=== PATIENT | female | born 2005 | race Caucasian/White ===

== ENCOUNTER 2024-12-26 09:50 | Emergency (ER) | payer OTHER, SELFPAY ==
--- OUTSIDE RECORDS SUMMARY | 2024-12-06 15:50 | XMS_ITS | Encounter Summary ---
Author Organization [facility] Address [address] [address] Care Team Providers Care Medical Radiation Therapist Name Role Phone Clinician, Not Found MD Primary Care Provider Un available Reason for Visit * Reason Comments BP CHECK,NURSE Encounter Details Date Type Department Care Team (Late st Contact Info) Description 12/06/2024 3:50 PM CDT Nursing Visit [facility]LOCKSTITCH TUNNEL ELASTIC OPERATOR [id number] [place] [address], [facility] [address] [place] [address] Nurse, Amber Obg Blood pressure check (Primary Dx) Social History Tobacco Use Types Packs/Day Years Used Date Smoking Tobacco: Never Smokeless Tobacco: Never Alcohol Use Standard Drinks/Week Comments No 0 (1 standard drink = 0.6 oz pur e alcohol) PHQ-2 Answer Date Recorded PHQ-2 Score 2 07/20/2024 Comments No Sex and Gender Information Value Date Recorded Sex Assigned at Not on file Legal Sex Female 1:20 PM CDT Gender Identity Not on file Sexual Orientation Not on file documented as of this encounter Last Filed Vital Signs Vital Sign Reading Time Taken Comments Blood Pressure 107/63 12/06/2024 4:25 PM CDT Pulse 80 12/06/2024 4:25 PM CDT Temperature - - Respiratory Rate - - Oxygen Saturation - - Inhaled Oxygen Concentration - - Weight 82.1 kg (181 lb) 12/06/2024 4:25 PM CDT Height - - Body Mass Index 27.52 08/22/2024 9:28 AM TELERADIOLOGIST documented in this encounter Progress Notes * Cookie Hernández MA - 12/06/2024 3:50 PM CDT Patient presents for blood pressure check. BP 107/63, P 80. Patient has no concerns today. documented in this encounter Plan of Treatment Upcoming Encounters Date Type Department Care Team (Late st Contact Info) Description 01/13/2025 7:00 AM CDT Appointment Optometry at [address] [address] Adeola Burgos, OD [address] [facility] [address] [place] [address] Scheduled Procedures Name Priority Associated Diagnoses Date/Ti me INJECTION BOTOX SPHINCTER Anal fissure documented as of this encounter Visit Diagnoses Diagnosis Blood pressure check- Primary Screening for hypertension documented in this encounter Care Teams Medical Radiation Therapist Relationship Specialty Start Date End Date Clinician, Not Found, [place] [address] PCP - General 11/26/19 documented as of this encounter
--- OUTSIDE RECORDS SUMMARY | 2024-12-19 15:40 | XMS_ITS | Encounter Summary ---
Author Organization [facility] Address [address] [address] Care Team Providers Care Stationary Plant Operators Name Role Phone Clinician, Not Found MD Primary Care Provider Un available Reason for Referral * Procedure/Equipment (Routine) - Incomplete Specialty Diagnoses / Procedures Referred By Contac t Referred To Contact Diagnoses Anal fissure Procedures Case Request OR - General/Vascular Surg: anorectal examination under anesthesia with botox injection to internal anal sphincter Juliano Yates MD [address] [facility] [address] [place] [address] Phone: tel: fax: Referral ID Status Reason Start Date Expiration Date V isits Requested Visits Authorized [id number] Incomplete 12/19/2024 03/20/2026 1 1 Encounter Details Date Type Department Care Team (Late st Contact Info) Description 12/19/2024 3:40 PM CDT [facility] [address] Colorectal Surgery [address] [place] [address] [address] [place], [place] [address] Juliano Yates MD [facility] [address] [place], [place] [id number] Anal fissure (Primary Dx) Social History Tobacco Use Types [...] on file documented as of this encounter Progress Notes * Juliano Yates MD - 12/19/2024 3:40 PM CDT Images from the original note were not included. Colorectal Surgery Clinic Postop Visit Name: Karol Robles Date of Service: 12/19/2024 Having sharp pains with BM. +nifed/lido without much relief Plan for eua/botox to LIS pending insurance prior auth. Boost fiber intake now. Goal is formed but soft stools. Options include: Extra serving of fruit/vegetable at every meal 1-2 tablespoons of Citrucel daily Juliano Yates MD MS FACS [facility] Colorectal Surgery Clinic RN: [phone] Clinic Appointment Scheduling [phone] Surgery [phone] documented in this encounter Plan of Treatment Upcoming Encounters Date Type Department Care Team (Late st Contact Info) Description 01/13/2025 7:00 AM CDT Appointment Optometry at [place] [id number] [place] [address] Adeola Burgos, OD [address] [facility] [address] [place] [address] Scheduled Procedures Name Priority Associated Diagnoses Date/Ti me INJECTION BOTOX SPHINCTER Anal fissure documented as of this encounter Visit Diagnoses Diagnosis Anal fissure- Primary documented in this encounter Care Teams Stationary Plant Operators Relationship Specialty Start Date End Date Clinician, Not Found, [place] [address] PCP - General 11/26/19 documented as of this encounter
[2024-12-26 09:58] VITALS: BP 115/67; PULSE 87; RESP 18; TEMP 37; O2SAT 99; BMI 27.1
--- OUTSIDE RECORDS SUMMARY | 2024-12-26 10:51 | XMS_ITS | Encounter Summary ---
Author Organization [facility] Address [address] [place] [address] Care Team Providers Care Combination Operator Name Role Phone Laura Marks MD Primary Care Provider [phone] Laura Marks MD Unavailable [phone] Iglesia Juárez MD Unavailable [phone] Iglesia Juárez MD Primary Care Provider + Yosef Kaplan MD Unavailable [phone] No Ref-Primary, Physician Primary Care Provider Deyanira Ordoñez PA-C Unavailable [phone] Encounter Details Date Type Department Care Team (Late st Contact Info) Description 06/20/2023 [facility] [address] [place] [address] [facility] Social History Tobacco Use Types Packs/Day Years Used Date Smoking Tobacco: Former Cigarettes Smokeless Tobacco: Never Alcohol Use Standard Drinks/Week Comments Yes 0 (1 standard drink = 0.6 oz pur e alcohol) PHQ-2 Answer Date Recorded PHQ-2 Score 2 06/19/2023 Adolescent Education Answer Date Record ed Getting School Help Needed Not on file 05/14 Food Insecurity Answer Date Recorded Within the past 12 months, d id you worry that your food would run out before you got money to buy more? No 06/19/2023 Within the past 12 months, d id the food you bought just not last and you didn t have money to get more? No 06/19/2023 Housing Stability Answer Date Recorded Do you have housing? (Maliha carlton is defined as stable permanent housing and does not include staying outside in a car, in a tent, in an abandoned building, in an overnight senior living, or couch-surfing.) Yes 06/19/2023 Are you worried about losing your housing? No 06/19/2023 Financial Resource Strain Answer Date R ecorded Within the past 12 months, h ave you or your family members you live with been unable to get utilities (heat, electricity) when it was really needed? No 06/19/2023 Transportation Needs Answer Date Record ed Within the past 12 months, h as lack of transportation kept you from medical appointments, getting your medicines, non-medical meetings or appointments, work, or from getting things that you need? No 06/19/2023 Interpersonal Safety Answer Date Record ed Do you feel physically and e motionally safe where you currently live? Yes 06/19/2023 Within the past 12 months, h ave you been hit, slapped, kicked or otherwise physically hurt by someone? No 06/19/2023 Within the past 12 months, h ave you been humiliated or emotionally abused in other ways by your partner or ex-partner? No 06/19/2023 Comments No Sex and Gender Information Value Date Recorded Sex Assigned at Female 11/15/2023 1:58 PM CDT Legal Sex Female 4:37 AM OPTICAL MANUFACTURING TECHNICIAN Gender Identity Female 11/15/2023 1:58 PM CDT Sexual Orientation Straight 11/15/2023 1: 58 PM CDT documented as of this encounter Plan of Treatment Not on file documented as of this encounter Visit Diagnoses Not on filedocumented in this encounter Additional Health Concerns Assessment Noted Time PHQ-9 Depression Total Score: 10 023 1:11 PM OPTICAL MANUFACTURING TECHNICIAN documented as of this encounter Care Teams Combination Operator Relationship Specialty Start Date End Date Laura Marks MD [address] [place] [phone] PCP - General Pediatrics 05/05/21 11/27/23 Iglesia Juárez MD [address] [place] [address] PCP - General Psychiatry 11/28/23 11/28/23 No Ref-Primary, Physician PCP - General 11/29/23 Laura Marks MD [address] [phone] Assigned PCP 08/01/21 12/19/24 Iglesia Juárez MD [address] [place] [address] manager policy 11/17/23 11/28/23 Yosef Kaplan MD [address] [place] [address] Resident Psychiatry 11/29/23 Deyanira Ordoñez PA-C [address] [place] [phone] Assigned PCP 12/20/24 documented as of this encounter
--- OUTSIDE RECORDS SUMMARY | 2024-12-26 10:51 | XMS_ITS | Encounter Summary ---
Author Organization [facility] Address [facility] [place] [address] Care Team Providers Care Identification Printing Machine Setter Name Role Phone Laura Marks MD Unavailable [phone] Yosef Kaplan MD Unavailable [phone] No Ref-Primary, Physician Primary Care Provider Deyanira Ordoñez PA-C Unavailable [phone] Encounter Details Date Type Department Care Team (Late st Contact Info) Description 12/26/2023 [facility] [place] [id number] [place] [address] Santi Guy Social History Tobacco Use Types Packs/Day Years Used Date Smoking Tobacco: Former Cigarettes Smokeless Tobacco: Never Alcohol Use Standard Drinks/Week Comments Yes 0 (1 standard drink = 0.6 oz pur e alcohol) PHQ-2 Answer Date Recorded PHQ-2 Score 2 11/30/2023 Adolescent Education Answer Date Record ed Getting [...] Answer Date Recorded Do you have housing? (Housin g is defined as stable permanent housing and does not include staying outside in a car, in a tent, in an abandoned building, in an overnight intermediate, or couch-surfing.) Yes 06/19/2023 Are you worried [...] PM CDT Legal Sex Female 4:[address]GER FIRER Gender Identity Female 11/15/2023 1:58 PM CDT Sexual Orientation Straight 11/15/2023 1: 58 PM CDT documented as of this encounter Plan of Treatment Not on file documented as of this encounter Visit Diagnoses Not on filedocumented in this encounter Additional Health Concerns Assessment Noted Time PHQ-9 Depression Total Score: 8 11/30/19 9:51 AM CDT documented as of this encounter Care Teams Identification Printing Machine Setter Relationship Specialty Start Date End Date No Ref-Primary, Physician PCP - General 11/29/23 Laura Marks MD [address] [place] [phone] Assigned PCP 08/01/21 12/19/24 Yosef Kaplan MD [address] [place] [address] Resident Psychiatry 11/29/23 Deyanira Ordoñez PA-C [address] [place] [address] Assigned PCP 12/20/24 documented as of this encounter
--- OUTSIDE RECORDS SUMMARY | 2024-12-26 10:51 | XMS_ITS | Encounter Summary ---
Author Organization [facility] Address [address] [address] Care Team Providers Care Skeet Operator Name Role Phone Clinician, Not Found MD Primary Care Provider Un available Encounter Details Date Type Department Care Team (Late st Contact Info) Description 12/18/2024 [facility] [address] [place] [phone] Social History Tobacco Use Types Packs/Day Years [...] as of this encounter Progress Notes * FAMILY MEDICINENAVID PROVIDER - 12/18/2024 10:45 PM CDT [facility] Treatment Plan Diagnosis Yeast Infection Visit Date December 19, 2024 Karol Robles Date of : 04 Provider Helen Mccray, Nurse Practitioner Note From Provider Karol Land! Thanks for using [facility] today. Sorry to hear about your symptoms. I sent in an intravaginal prescription because there are two potentially severe interactions between the oral pill and medications you take. Please be sure to read through the treatment plan I've put together for you b elow, as this has additional information and instructions. Take good care! - Helen, RESIDENTIAL SALES Treatment Plan I sent a prescription for a topical antifungal medication to [facility]. Follow the instructions thatcome with your prescribed medication and note that this topical medication can weaken latex condoms anddiaphragms. If you use these forms of control, avoid having sex while using this medication and for 72hours (3 days) after completing this medication to reduce risk. Order(s) terconazole 0.8% cream Insert 5 gram into vagina once a day for 3 days Note: $patientNotes Refills: 1 Sent To: [facility] [id number] [place] [address] [place] [address] Treatment Plan Self Care Tip Topics Common Risk Factors for Yeast Infections What to Expect With the recommendations in this treatment plan, your symptoms should start to improve over the next 3days but may take up to a week to fully resolve. If your symptoms worsen or don?? improve in thistimeframe,I recommend you be seen in person so a clinician can consider testing and determine next steps. What to Watch Out For Visit a clinic or urgent care if you experience: ??? A fever higher than 103.0 F ??? Strong vaginal odor with discharge ??? Frequent, painful urination ??? Blood in urine ??? Severe back, abdominal or pelvic pain My Conditions, Orders, Allergies as of December 19, 2024 Standard condition list Asthma Current orders terconazole (terconazole) Lomaira (phentermine) topiramate (topiramate) Celexa (citalopram) hydroxyzine HCl (hydroxyzine HCl) Wellbutrin XL (bupropion HCl) Colace (docusate sodium) Allergies None [facility] We are an online clinic open 20/02. If you have any questions or comments about this visit, please call or email [email or web address] documented in this encounter Plan of Treatment Upcoming Encounters Date Type Department Care Team (Late st Contact Info) Description 01/13/2025 7:00 AM CDT Appointment Optometry at [address] [address] Adeola Burgos, OD [address] [facility] [address] [place] [address] Scheduled Procedures Name Priority Associated Diagnoses Date/Ti me INJECTION BOTOX SPHINCTER Anal fissure documented as of this encounter Visit Diagnoses Diagnosis Acute candidiasis of vulva and vagina documented in this encounter Care Teams Skeet Operator Relationship Specialty Start Date End Date Clinician, Not Found, [place] [address] PCP - General 11/26/19 documented as of this encounter
--- OUTSIDE RECORDS SUMMARY | 2024-12-26 10:51 | XMS_ITS | Encounter Summary ---
Author Organization [facility] Address [address], [place] [address] Care Team Providers Care Leather Fitter Name Role Phone Clinician, Not Found MD Primary Care Provider Un available Reason for Visit * Reason Comments Refill topiramate (TOPAMAX) 25 MG tablet [Pharmacy Med Name: Topiramate Oral Tablet 25 MG] Encounter Details Date Type Department Care Team (Late st Contact Info) Description 10/14/2024 Refill [facility] [address] [place], [place] [phone] Darling Godoy APRN, CRIB ATTENDANT [address] [place], [place] [phone] Refill (topiramate (TOPAMAX) 25 MG tablet [Pharmacy Med Name: Topiramate Oral Tablet 25 MG]) Social History Tobacco Use Types Packs/Day Years [...] on file documented as of this encounter Nursing Notes * Sally Jones - 10/14/2024 12:25 PM CDT Patient has appointment scheduled for later today. Future Appointments Provider Department Center 10/14/2024 5:00 PM Darling Godoy APRN, CNP [facility] Virtual Primary Care Virtual * Darling Godoy APRN, CNP - 10/14/2024 11:48 AM CDT Due for 3 month follow up. Thank you! * Milan Weller Xrwcomm - 10/14/2024 9:08 AM CDT topiramate (TOPAMAX) 25 MG tablet [Pharmacy Med Name: Topiramate Oral Tablet 25 MG] Medication started: 07/20/2024 Last ordered by DARLING GODOY: 08/16/2024 (59 days ago) QTY: 180, Refills: 0, Sig: take 1 tablet (25 mg) by mouth two times a day. (changed but equivalent) -> Medication cannot be delegated. Last qualifying visit: 07/20/2024 (with DARLING GODOY) Next scheduled visit: None [facility] Embedded Refills, Reference: [id number], 10/14/2024 9:08:02 AM CDT, Pool: LOBO Refill Centralized Services - Primary Care [[id number]] ([id number]) documented in this encounter Plan of Treatment Upcoming Encounters Date Type Department Care Team (Late st Contact Info) Description 01/13/2025 7:00 AM CDT Appointment Optometry at [address] [address] Adeola Burgos, OD [address] [facility] [address] [place], [place] [address] Scheduled Procedures Name Priority Associated Diagnoses Date/Ti me INJECTION BOTOX SPHINCTER Anal fissure documented as of this encounter Visit Diagnoses Not on filedocumented in this encounter Care Teams Leather Fitter Relationship Specialty Start Date End Date Clinician, Not Found, [place] [address] PCP - General 11/26/19 documented as of this encounter
--- OUTSIDE RECORDS SUMMARY | 2024-12-26 10:51 | XMS_ITS | Encounter Summary ---
Author Organization [facility] Address [address] [place] [address] Care Team Providers Care Cryogenic Transport Driver Name Role Phone Esha Sandoval MD Primary Care Provid er Gabbie De La O MD Unavailable Jose Kulkarni MD Primary Care Provider [phone] Laura Marks MD Unavailable [phone] Laura Marks MD Primary Care Provider [phone] Gabbie De La O MD Unavailable Laura Marks MD Unavailable [phone] Iglesia Juárez MD Unavailable [phone] Iglesia Juárez MD Primary Care Provider + Yosef Kaplan MD Unavailable [phone] No Ref-Primary, Physician Primary Care Provider Deyanira Ordoñez PA-C Unavailable [phone] Reason for Visit * Reason Comments Medication Refill celexa 20mg - due fo r appt Encounter Details Date Type Department Care Team (Late st Contact Info) Description 10/24/[address] [address] Gabbie De La O MD [address] [place] [address] Medication Refill (celexa 20mg - due for appt) Social History Tobacco Use Types Packs/Day Years Used Date Smoking Tobacco: Never PHQ-2 Answer Date Recorded PHQ-2 Score 4 08/31/2020 Comments No Sex and Gender Information Value Date Recorded Sex Assigned at Female 11/15/2023 1:58 PM CDT Legal Sex Female 4:37 AM OPTICAL WORKER Gender Identity Female 11/15/2023 1:58 PM CDT Sexual Orientation Straight 11/15/2023 1: 58 PM CDT documented as of this encounter Miscellaneous Notes * Telephone Encounter - Chhaya Ascencio RN - 10/30/2020 3:12 PM CDT Routing to [employer], to call pt & help schedule appt with Dr. De La O, for [facility]. * Telephone Encounter - Bárbara Stanford MD - 10/30/2020 11:49 AM CDT Rx refilled. Please make appointment with PCP in 3 months Bárbara Stanford MD on 10/30/2020 at 11:49 AM * Telephone Encounter - Felisha Soares RN - 10/30/2020 10:55 AM CDT Spoke to Mom, Patient out of town right now, 11/03/2020. So far patient is doing well. Sleeping well. Taking 20mg before bed. Personality has 'perked up'. Has not found a counselor yet d/t cost. Still at same school and speaking with school nurse, as needed. Overall feels like she is doing good. As she is journaling, reading, and breathing techniques. Has not decided on a new school yet. PCP please advise patient is out please advise if can send refill now. And update script to just 1 tablet. * Telephone Encounter - Felisha Soares RN - 10/30/2020 10:55 AM CDT Please repeat PHQ-9 and see how patient is doing on this medication? Has she found counseling through her new school? Does she need a counseling referral for the summer? Is the 20 mg helping enough? ?? Bárbara Stanford MD on 10/29/2020 at 11:26 AM ?? * Telephone Encounter - Marisela Cagle RN - 10/27/2020 1:01 PM CDT Images from the original note were not included. Routing refill request to provider for review/approval because: SSRIs Protocol [id number]/24/2020 04:12 PM PHQ-9 score less than 5 in past 6 months Protocol Details Patient is age 18 or older documented in this encounter Plan of Treatment Not on file documented as of this encounter Visit Diagnoses Diagnosis Current mild episode of major depressive disorder, unspecified whether recurrent documented in this encounter Additional Health Concerns Infection Onset Date Last Indicated Resolved Time Rule Out COVID-19 05/30/2022 05/30/2022 05/30/2022 10:19 PM CDT Influenza 05/30/2022 05/30/2022 06/06/2022 11:3 9 PM OPTICAL WORKER Assessment Noted Time PHQ-9 Depression Total Score: 12 021 10:25 AM OPTICAL WORKER documented as of this encounter Care Teams Cryogenic Transport Driver Relationship Specialty Start Date End Date Esha Sandoval MD PCP - General 01/24/05 10/29/20 Jose Kulkarni MD [address] [place] [address] [address] [place] [phone] PCP - General Family Practice 02/05/21 05/04/21 Laura Marks MD [address] [place] [phone] PCP - General Pediatrics 05/05/21 11/27/23 Iglesia Juárez MD [address] [place] [id number] PCP - General Psychiatry 11/28/23 11/28/23 No Ref-Primary, Physician PCP - General 11/29/23 Gabbie De La O MD [address] [place] [address] Assigned PCP 09/06/20 03/06/21 Laura Marsk MD [address] [place] [phone] Assigned PCP 03/07/21 05/08/21 Gabbie De La O MD [address] [place] [address] Assigned PCP 05/09/21 07/31/21 Laura Marks MD [address] [place] [phone] Assigned PCP 08/01/21 12/19/24 Iglesia Juárez MD [address] [place] [address] milking machine technician 11/17/23 11/28/23 Yosef Kaplan MD [address] [place] [address] Resident Psychiatry 11/29/23 Deyanira Ordoñez PA-C [address] [place] [address] Assigned PCP 12/20/24 documented as of this encounter
--- OUTSIDE RECORDS SUMMARY | 2024-12-26 10:51 | XMS_ITS | Encounter Summary ---
Author Organization [facility] Address [address] [address] Care Team Providers Care Rn Travel Name Role Phone Clinician, Not Found MD Primary Care Provider Un available Reason for Visit * Reason Comments Refill LOMAIRA 8 MG [Pharma cy Med Name: Lomaira Oral Tablet 8 MG] Encounter Details Date Type Department Care Team (Late st Contact Info) Description 10/14/2024 Refill [facility] [address] [place], [place] [id number] Darling Godoy APRN, CNP [address] [place], [place] [phone] Refill (LOMAIRA 8 MG [Pharmacy Med Name: Lomaira Oral Tablet 8 MG]) Social History Tobacco Use Types Packs/Day [...] as of this encounter Nursing Notes * Darling Godoy APRN, CNP - 10/14/2024 11:47 AM CDT Due for three month follow up. Thank you! * Milan Weller - 10/14/2024 9:08 AM CDT LOMAIRA 8 MG [Pharmacy Med Name: Lomaira Oral Tablet 8 MG] Medication started: 07/20/2024 Last ordered by DARLING GODOY E: 08/06/2024 (69 days ago) QTY: 70, Refills: 0, Sig: take 0.5 tablets (4 mg) by mouth two times a day with meals for 14 days, then 1 tablet (8 mg) two times a day with meals for 28 days. (changed) -> The most recent order on 09/17/2024. -> Unable to determine if sig has changed, review required. -> Medication cannot be delegated. Last qualifying visit: 07/20/2024 (with DARLING GODOY) Next scheduled visit: [facility] Embedded Refills, Reference: [id number], 10/14/2024 9:08:02 AM Jacinta BHARDWAJill Centralized Services - Primary Care [[id number]] ([id number]) * Milan Wellercomm - 10/14/2024 9:08 AM CDT No Careplan note found by [employer]. documented in this encounter Plan of Treatment Upcoming Encounters Date Type Department Care Team (Late st Contact Info) Description 01/13/2025 7:00 AM CDT Appointment Optometry at [address] [phone] Adeola Burgos, OD 16[address] [facility] 100 [place], [place] [address] Scheduled Procedures Name Priority Associated Diagnoses Date/Ti me INJECTION BOTOX SPHINCTER Anal fissure documented as of this encounter Visit Diagnoses Diagnosis Obesity, Class I, BMI 30-34.9 Obesity, unspecified documented in this encounter Care Teams Rn Travel Relationship Specialty Start Date End Date Clinician, Not Found, [place] [address] PCP - General 11/26/19 documented as of this encounter
--- OUTSIDE RECORDS SUMMARY | 2024-12-26 10:51 | XMS_ITS | Encounter Summary ---
Author Organization [place] Address [facility] [place] [address] Care Team Providers Care Wet Cotton Feeder Name Role Phone Laura Marks MD Unavailable [phone] Yosef Kaplan MD Unavailable [phone] Ref-Primary, Physician Primary Care Provider Deyanira Ordoñez PA-C Unavailable [phone] Encounter Details Date Type Department Care Team (Late st Contact Info) Description 05/15/2024 [facility] Mental Health & Addiction [place] [phone] [address] [place] [address] Santi Guy Social History Tobacco Use Types Packs/Day Years Used Date Smoking Tobacco: Former Cigarettes Smokeless Tobacco: Never Alcohol Use Standard Drinks/Week Comments Yes 0 (1 standard drink = 0.6 oz pur e alcohol) PHQ-2 Answer Date Recorded PHQ-2 Score 2 05/09/2024 Adolescent Education Answer Date Record ed Getting [...] in an abandoned building, in an overnight alf, or couch-surfing.) Yes 06/19/2023 Are you worried [...] PM CDT Legal Sex Female 4:37 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 Gender Identity Female 11/15/2023 1:58 PM CDT Sexual Orientation Straight 11/15/2023 1: 58 PM CDT documented as of this encounter Plan of Treatment Not on file documented as of this encounter Visit Diagnoses Not on filedocumented in this encounter Additional Health Concerns Assessment Noted Time PHQ-9 Depression Total Score: 7 05/08/20 24 11:05 AM CDT documented as of this encounter Care Teams Wet Cotton Feeder Relationship Specialty Start Date End Date No Ref-Primary, Physician PCP - General 11/29/23 Laura Marks MD [address] [place] [phone] Assigned PCP 08/01/21 12/19/24 Yosef Kaplan MD [address] [place] [address] Resident Psychiatry 11/29/23 Deyanira Ordoñez PA-C [address] [place] [address] Assigned PCP 12/20/24 documented as of this encounter
--- OUTSIDE RECORDS SUMMARY | 2024-12-26 10:51 | XMS_ITS | Encounter Summary ---
Author Organization [place] Address [facility] [place] [address] Care Team Providers Care Aoc Operations Intelligence Officer Name Role Phone Laura Marks MD Primary Care Provider [phone] Laura Marks MD Unavailable [phone] Iglesia Juárez MD Unavailable [phone] Iglesia Juárez MD Primary Care Provider + Yosef Kaplan MD Unavailable [phone] No Ref-Primary, Physician Primary Care Provider Deyanira Ordoñez PA-C Unavailable [phone] Encounter Details Date Type Department Care Team (Late st Contact Info) Description 11/17/2023 [facility] Mental Health & Addiction [place] [phone] [address] Santi Guy Social History Tobacco Use Types Packs/Day Years Used Date Smoking Tobacco: Former Cigarettes Smokeless Tobacco: Never Alcohol Use Standard Drinks/Week Comments Yes 0 (1 standard drink = 0.6 oz pur e alcohol) PHQ-2 Answer Date Recorded PHQ-2 Score 2 11/15/2023 Adolescent Education Answer Date Record ed Getting [...] in an abandoned building, in an overnight nursing home, or couch-surfing.) Yes 06/19/2023 Are you worried [...] PM CDT Legal Sex Female 4:37 AM BASIN 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 Gender Identity Female 11/15/2023 1:58 PM CDT Sexual Orientation Straight 11/15/2023 1: 58 PM CDT documented as of this encounter Plan of Treatment Not on file documented as of this encounter Visit Diagnoses Not on filedocumented in this encounter Additional Health Concerns Assessment Noted Time PHQ-9 Depression Total Score: 9 09/27/19 8:46 AM BASIN TENDER documented as of this encounter Care Teams Aoc Operations Intelligence Officer Relationship Specialty Start Date End Date Laura Marks MD [address] [place] [phone] PCP - General Pediatrics 05/05/21 11/27/23 Iglesia Juárez MD [address] [place] [address] [phone] PCP - General Psychiatry 11/28/23 11/28/23 No Ref-Primary, Physician PCP - General 11/29/23 Laura Marks MD [address] [phone] Assigned PCP 08/01/21 12/19/24 Iglesia Juárez MD [address] [place] [address] school traffic guard 11/17/23 11/28/23 Yosef Kaplan MD [address] [place] [address] Resident Psychiatry 11/29/23 Deyanira Ordoñez PA-C [address] [place] [address] Assigned PCP 12/20/24 documented as of this encounter
--- OUTSIDE RECORDS SUMMARY | 2024-12-26 10:51 | XMS_ITS | Clinical Summary ---
Author Organization [place] Address [address] [place] [address] Care Team Providers Care Archery Instructor Name Role Phone Yosef Kaplan MD Unavailable [phone] No Ref-Primary, Physician Primary Care Provider Deyanira Ordoñez PA-C Unavailable [phone] Allergies Active Allergy Reactions Criticality Noted Date Comments Seasonal Allergies Low 12/05/2016 Medications fluticasone (FLOVENT HFA) 110 MCG/ACT inhalerIndication s:Exercise-induce d asthma Inhale 2 puffs into the lungs 2 times daily for 14 days 24 g 1 1 Active albuterol (PROAIR HFA) 108 (90 Base) MCG/ACT inhalerIndication s:Acute bronchospasm INHALE TWO PUFFS BY MOUTH EVERY 4 HOURS NEEDED SHORTNESS OF BREATH/DYSPNEA 18 g 3 1 Active hydrOXYzine HCl (ATARAX) 10 MG tabletIndications :LUC (generalized anxiety disorder) Take 1 tablet (10 mg) by mouth 2 times daily as needed for anxiety. 30 tablet 1 4 Active buPROPion (WELLBUTRIN XL) 150 MG 24 hr tabletIndications :Major depressive disorder, recurrent episode, moderate (H),LUC (generalized anxiety disorder) Take 1 tablet (150 mg) by mouth every morning. 30 tablet 2 4 Active citalopram (CELEXA) 40 MG tabletIndications :Major depressive disorder, recurrent episode, moderate (H),LUC (generalized anxiety disorder) Take 1 tablet (40 mg) by mouth daily. 30 tablet 2 4 Active lidocaine (LMX4) 4 % external cream Apply topically once as needed for mild pain. 30 g 5 Active Active Problems Problem Noted Date Diagnosed Date Passive suicidal ideations 07/16/2023 Major depression, recurrent 07/16/2023 Mild intermittent asthma, uncomplicated 02/26/20 21 Exercise-induced asthma 02/25/2021 Loss of weight 12/20/2016 Generalized anxiety disorder 12/20/2016 Resolved Problems Problem Noted Date Diagnosed Date Resolved Date Adjustment disorder with anxious mood 03/18/2016 12/31/2023 Hemangioma of skin and subcutaneous tissue 05/18/2005 10/28/2009 Umbilical hernia 2004 10/28/2009 Overview (04/30/2015): Problem list name updated by automated process. Provider to review Immunizations Immunization Administration Dates Next Due DTAP-IPV, <7Y (QUADRACEL/KINRIX) 03/02/2010 DTaP/HepB/IPV 05/18/2005,02/15/2005,2004 HIB (PRP-T) 2004 HIB(PRP-OMP)(PedvaxHIB) 02/15/2005 Hepatitis A (Vaqta/Havrix)(P eds 12m-18y) 02/25/2021 Influenza (IIV3) PF 06/17/2010, 8,07/27/2006,06/17,05/18/2005 Influenza Vaccine >6 months,quad, PF 08/02/2023 MMR (MMRII) 03/02/2010,10/26/2005 Meningococcal ACWY (Menactra ) 02/25/2021,04/25/2017 Pneumococcal (PCV 7) 02/08/2006,05/18/20 05,02/15/2005,12/13 TDAP Vaccine (Adacel) 04/25/2017 TRIHIBIT (DTAP/HIB, <7y) 02/08/2006 Varicella (Varivax) 03/02/2010,10/26/2005 Family History Medical History Relation Comments Diabetes Brother Type 1 Connective Tissue Disorder Maternal Grandfather sjogrens syndrome Connective Tissue Disorder Mother vitil igo, Thyroid Disease Mother hypothyroid Arthritis Other MOm and dad also with auto-immune disorders Diabetes Sister Type 1 Relation Status Comments Brother Maternal Grandfather Mother Other Sister Social History Tobacco Use Types Packs/Day Years Used Date Smoking Tobacco: Former Cigarettes Smokeless Tobacco: Never Tobacco Cessation:Counseling Given: Not Answered Alcohol Use Standard Drinks/Week Comments Yes 0 [...] in an abandoned building, in an overnight longterm, or couch-surfing.) Yes 06/19/2023 Are you worried [...] PM CDT Legal Sex Female 4:37 AM PIPE SMOKING MACHINE OPERATOR Gender Identity Female 11/15/2023 1:58 PM CDT Sexual Orientation Straight 11/15/2023 1: 58 PM CDT Last Filed Vital Signs Vital Sign Reading Time Taken Comments Blood Pressure 123/78 08/15/2024 6:20 PM PIPE SMOKING MACHINE OPERATOR Pulse 89 08/15/2024 6:00 PM PIPE SMOKING MACHINE OPERATOR Temperature 37.1 C (98.8 F) 08/15/2024 6:24 PM PIPE SMOKING MACHINE OPERATOR Respiratory Rate 18 08/15/2024 4:15 PM PIPE SMOKING MACHINE OPERATOR Oxygen Saturation 98% 08/15/2024 6:20 PM PIPE SMOKING MACHINE OPERATOR Inhaled Oxygen Concentration - - Weight 91.9 kg (202 lb 9.6 oz) 08/15/2024 4:15 P M PIPE SMOKING MACHINE OPERATOR Height 171.5 cm (5' 7.5) 08/15/2024 4:15 PM PIPE SMOKING MACHINE OPERATOR Body Mass Index 31.26 08/15/2024 4:15 PM PIPE SMOKING MACHINE OPERATOR Plan of Treatment Health Maintenance Due Date Last Done Comments ASTHMA ACTION PLAN 2004 DEPRESSION ACTION PLAN 2004 HIV SCREENING 10/17/2019 HPV VACCINE (1 - 3-dose series) 10/17/2019 MENINGITIS B VACCINE (1 of 2 - Standard) 2020 HEPATITIS C SCREENING 2022 PNEUMOCOCCAL VACCINE: PEDIAT RICS (0 to 5 YEARS) AND AT-RISK PATIENTS (6 to 49 YEARS) (1 of 2 - PCV) 10/17/2023 02/08/2006, 05/18/2005, 02/15/2005, Additional history exists COVID-19 VACCINE (2 - Novava x series) 03/31/2024 08/05/2023 YEARLY PREVENTIVE VISIT 06/19/2024 06/19/20, 02/25/2021, 03/14/2018, Additional history exists ASTHMA CONTROL TEST 07/20/2024 01/19/2024, 06/19/2023, 01/17/2022, Additional history exists PHQ-9 11/07/2024 05/09/2024, 0607/2023, 11/30/2023, Additional history exists ANNUAL REVIEW OF HM ORDERS 11/29/2024 11/30/2023, INFLUENZA VACCINE (Season Ended) 2025 08/02/2023, 06/17/2010, 06/18/2008, Additional history exists CHLAMYDIA SCREENING 05/20/2025 05/20/2024, 05/20/2024, 03/08/2023, Additional history exists DTAP/TDAP/TD VACCINE (7 - Td or Tdap) 04/25/2027 04/25/2017, 03/02/2010, 02/08/2006, Additional history exists ADVANCE CARE PLANNING 08/17/2028 08/17/2023 ZOSTER VACCINE (1 of 2) 2054 MENINGITIS VACCINE Completed 02/25/2021, 04/25/2017 HEPATITIS B VACCINE Completed 06/14/2024, 06/14/2024, 05/18/2005, Additional history exists Procedures Procedure Name Priority Date/Time Associated Diagnosis Comments CHLAMYDIA TRACHOMATIS PCR Routine 05/20/2024 5:25 PM CDT Vaginal discharge from Last 3 Months or Most Recently Relevant to Health Maintenance Results * Chlamydia trachomatis PCR (05/20/2024 5:25 PM CDT) Chlamydia trachomatis Negative Negative 05/22/2024 1:12 PM CDT [facility] Comment:A negative result by photographic aide mediated amplification does not preclude the presence of C. trachomatis infection because results are dependent on proper and adequate collection, absence of inhibitors and sufficient rRNA to be detected. Swab VAGINAL STRUCTURE / Unknown Non-blood Collection / Unknown 05/20/2024 5:25 PM CDT 05/20/2024 5:25 PM CDT us Gabbie De La O MD LAB - MICRO GENERAL ORDERABLES F inal Result [facility] Inf. Diseases Diag. Lab [address] [facility], [address] [place] [address], [facility] from Last 3 Months or Most Recently Relevant to Health Maintenance Insurance [facility] [employer] Care Teams Archery Instructor Relationship Specialty Start Date End Date No Ref-Primary, Physician PCP - General 11/29/23 Yosef Kaplan MD [address] [place] [address] Resident Psychiatry 11/29/23 Deyanira Ordoñez PA-C [address] [place] [address] [phone] Assigned PCP 12/20/24
--- OUTSIDE RECORDS SUMMARY | 2024-12-26 10:51 | XMS_ITS | Encounter Summary ---
Author Organization [place] Address [facility] [place] [address] Care Team Providers Care Blue Print Control Clerk Name Role Phone Laura Marks MD Primary Care Provider [phone] Laura Marks MD Unavailable [phone] Iglesia Juárez MD Unavailable [phone] Iglesia Juárez MD Primary Care Provider + Yosef Kaplan MD Unavailable [phone] No Ref-Primary, Physician Primary Care Provider Deyanira Ordoñez PA-C Unavailable [phone] Encounter Details Date Type Department Care Team (Late st Contact Info) Description 11/15/2023 [facility] Mental Health & Addiction [place] [phone] [address] Santi Guy Social History Tobacco [...] in an abandoned building, in an overnight care home, or couch-surfing.) Yes 06/19/2023 Are you [...] PM CDT Legal Sex Female 4:37 AM 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 Gender Identity Female 11/15/2023 1:58 PM CDT Sexual Orientation Straight 11/15/2023 1: 58 PM CDT documented as of this encounter Plan of Treatment Not on file documented as of this encounter Visit Diagnoses Not on filedocumented in this encounter Additional Health Concerns Assessment Noted Time PHQ-9 Depression Total Score: 9 09/27/19 8:46 AM 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 documented as of this encounter Care Teams Blue Print Control Clerk Relationship Specialty Start Date End Date Laura Marks MD [address] [place] [phone] PCP - General Pediatrics 05/05/21 11/27/23 Iglesia Juárez MD [address] [place] [address] [phone] PCP - General Psychiatry 11/28/23 11/28/23 No Ref-Primary, Physician PCP - General 11/29/23 Laura Marks MD [address] [phone] Assigned PCP 08/01/21 12/19/24 Iglesia Juárez MD [address] [place] [address] humidifier maintenance worker 11/17/23 11/28/23 Yosef Kaplan MD [address] [place] [address] Resident Psychiatry 11/29/23 Deyanira Ordoñez PA-C [address] [place] [address] Assigned PCP 12/20/24 documented as of this encounter
--- OUTSIDE RECORDS SUMMARY | 2024-12-26 10:51 | XMS_ITS | Encounter Summary ---
Author Organization [place] Address [address] [place] [address] Care Team Providers Care Clerical Investigator Name Role Phone Laura Marks MD Primary Care Provider [phone] Laura Marks MD Unavailable [phone] Iglesia Juárez MD Unavailable [phone] Iglesia Juárez MD Primary Care Provider + Yosef Kaplan MD Unavailable [phone] No Ref-Primary, Physician Primary Care Provider Reason for Visit * Reason Onset Date Comments Orders 08/14/2023 Encounter Details Date Type Department Care Team (Late st Contact Info) Description 08/14/[address] [address] Laura Marks MD [address] [place] [phone] Orders Social History Tobacco Use Types Packs/Day Years [...] in an abandoned building, in an overnight mcc, or couch-surfing.) Yes 06/19/2023 Are you worried [...] PM CDT Legal Sex Female 4:37 AM VP [employer] Gender Identity Female 11/15/2023 1:58 PM CDT Sexual Orientation Straight 11/15/2023 1: 58 PM CDT documented as of this encounter Miscellaneous Notes * Telephone Encounter - Myra Zendejas RN - 08/15/2023 8:45 AM CST Please see pending lab order and sign if approved. 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 [facility] Does patient have an appointment scheduled?: No Where to send orders: Place orders within [facility] Could we send this information to you in [facility] or would you prefer to receive a phone call?: Patient would prefer a phone call Okay to leave a detailed message?: Yes at Cell number on file: Telephone Information: [employer] documented in this encounter Plan of Treatment Not on file documented as of this encounter Visit Diagnoses Diagnosis Screening examination for pulmonary tuberculosis- Primary documented in this encounter Additional Health Concerns Assessment Noted Time PHQ-9 Depression Total Score: 10 023 1:11 PM VP [employer] documented as of this encounter Care Teams Clerical Investigator Relationship Specialty Start Date End Date Laura Marks MD [address] [place] [phone] PCP - General Pediatrics 05/05/21 11/27/23 Iglesia Juárez MD [address] [place] [address] [phone] PCP - General Psychiatry 11/28/23 11/28/23 No Ref-Primary, Physician PCP - General 11/29/23 Laura Marks MD [address] [place] [phone] Assigned PCP 08/01/21 12/19/24 Iglesia Juárez MD [address] [place] [address] admitting supervisor 11/17/23 11/28/23 Yosef Kaplan MD [address] [place] [address] Resident Psychiatry 11/29/23 documented as of this encounter
--- OUTSIDE RECORDS SUMMARY | 2024-12-26 10:51 | XMS_ITS | Encounter Summary ---
Author Organization [place] Address [facility] [place] [address] Care Team Providers Care Fuel Truck Driver Name Role Phone Laura Marks MD Primary Care Provider [phone] Laura Marks MD Unavailable [phone] Iglesia Juárez MD Unavailable [phone] Iglesia Juárez MD Primary Care Provider + Yosef Kaplan MD Unavailable [phone] No Ref-Primary, Physician Primary Care Provider Deyanira Ordoñez PA-C Unavailable [phone] Encounter Details Date Type Department Care Team (Late st Contact Info) Description 09/07/2023 [facility] Advice [place] [facility] Mental Health & Addiction [place] [phone] [address] Jesi Morrow, RN Social History Tobacco Use Types Packs/Day Years Used Date Smoking Tobacco: Former Cigarettes Smokeless Tobacco: Never Alcohol Use Standard Drinks/Week Comments Yes 0 (1 standard drink = 0.6 oz pur e alcohol) PHQ-2 Answer Date Recorded PHQ-2 Score 2 08/23/2023 Adolescent Education Answer Date Record ed Getting [...] PM CDT Legal Sex Female 4:37 AM PIN TICKET MACHINE OPERATOR Gender Identity Female 11/15/2023 1:58 PM CDT Sexual Orientation Straight 11/15/2023 1: 58 PM CDT documented as of this encounter Plan of Treatment Not on file documented as of this encounter Visit Diagnoses Not on filedocumented in this encounter Additional Health Concerns Assessment Noted Time PHQ-9 Depression Total Score: 9 08/23/19 24 8:49 AM PIN TICKET MACHINE OPERATOR documented as of this encounter Care Teams Fuel Truck Driver Relationship Specialty Start Date End Date Laura Marks MD [address] [place] [phone] PCP - General Pediatrics 05/05/21 11/27/23 Iglesia Juárez MD [address] [place] [address] PCP - General Psychiatry 11/28/23 11/28/23 No Ref-Primary, Physician PCP - General 11/29/23 Laura Marks MD [address] [phone] Assigned PCP 08/01/21 12/19/24 Iglesia Juárez MD [address] [place] [address] hydrotherapist 11/17/23 11/28/23 Yosef Kaplan MD [address] [place] [address] Resident Psychiatry 11/29/23 Deyanira Ordoñez PA-C [address] [place] [address] Assigned PCP 12/20/24 documented as of this encounter
--- OUTSIDE RECORDS SUMMARY | 2024-12-26 10:51 | XMS_ITS | Encounter Summary ---
Author Organization [facility] Address [address] [place] [address] Care Team Providers Care Senior Linux Unix Engineer Name Role Phone Clinician, Not Found MD Primary Care Provider Un available Reason for Visit * Reason Comments Refill LOMAIRA 8 MG [Pharma cy Med Name: Lomaira Oral Tablet 8 MG] Encounter Details Date Type Department Care Team (Late st Contact Info) Description [facility]/17[facility]20[facility] [address] [place], [place] [phone] Darling Godoy APRN, PICK UP DRIVER [address] [place], [place] [address] Refill (LOMAIRA 8 MG [Pharmacy Med Name: [...] Notes * Darling Godoy APRN, CNP - 12/17/2024 1:05 PM CDT PDMP reviewed. * Miguelito Torres - 12/17/2024 1:01 PM CDT Pt calling back, says refills where discussed during her visit in september. Please add those additional refills * Milan Weller Xrwcomm - 12/17/2024 12:56 PM CDT LOMAIRA 8 MG [Pharmacy Med Name: Lomaira Oral Tablet 8 MG] Medication started: 07/20/2024 Last ordered by DARLING GODOY E: 10/14/2024 (64 days ago) QTY: 45, Refills: 1, Sig: take 1 tablet (8 mg) by mouth every morning and 0.5 tablets (4 mg) every evening. (changed but equivalent) -> Medication cannot be delegated. Last qualifying visit: 10/14/2024 (with DARLING GODOY) Next scheduled visit: [facility] Embedded Refills, Reference: [id number], 12/17/2024 12:56:38 PM CDT, Pool: LOBO Refill Centralized Services - Primary Care [[id number]] ([id number]) * Milan Weller Xrwcomm - 12/17/2024 12:56 PM CDT No Careplan note found by [employer]. documented in this encounter Plan of Treatment Upcoming Encounters Date Type Department Care Team (Late st Contact Info) Description 01/13/2025 7:00 AM CDT Appointment Optometry at [address] [address] Adeola Burgos, OD [address] [facility] 100 [place] [address] Scheduled Procedures Name Priority Associated Diagnoses Date/Ti me INJECTION BOTOX SPHINCTER Anal fissure documented as of this encounter Visit Diagnoses Diagnosis Obesity, Class I, BMI 30-34.9 Obesity, unspecified documented in this encounter Care Teams Senior Linux Unix Engineer Relationship Specialty Start Date End Date Clinician, Not Found, [place] [address] PCP - General 11/26/19 documented as of this encounter
--- OUTSIDE RECORDS SUMMARY | 2024-12-26 10:51 | XMS_ITS | Encounter Summary ---
Author Organization [facility] Address [address] [place] [address] Care Team Providers Care Mission Support Specialist Name Role Phone Laura Marks MD Primary Care Provider [phone] Laura Marks MD Unavailable [phone] Iglesia Juárez MD Unavailable [phone] Iglesia Juárez MD Primary Care Provider + Yosef Kaplan MD Unavailable [phone] No Ref-Primary, Physician Primary Care Provider Deyanira Ordoñez PA-C Unavailable [phone] Reason for Visit * Reason Comments Medication Refill Encounter Details Date Type Department Care Team (Late st Contact Info) Description 01/05/[address] [address] Laura Marks MD [address] [place] [address] Medication Refill Social History Tobacco Use Types Packs/Day Years Used Date Smoking Tobacco: Never Smokeless Tobacco: Never PHQ-2 Answer Date Recorded PHQ-2 Score 2 02/25/2021 Comments No Sex and Gender Information Value Date Recorded Sex Assigned at Female 11/15/2023 1:58 PM CDT Legal Sex Female 4:37 AM FIRE CAPTAIN MARINE Gender Identity Female 11/15/2023 1:58 PM CDT Sexual Orientation Straight 11/15/2023 1: 58 PM CDT documented as of this encounter Miscellaneous Notes * Telephone Encounter - Meenu Godinez - 01/07/2022 3:14 PM CDT Left voicemail to call back and get scheduled * Telephone Encounter - Laura Marks MD - 01/06/2022 5:20 PM CDT 1 refill previously done. Past due for appointment .PLEASE SET UP VIRTUAL VISIT(PREFERRED VIDEO) * Telephone Encounter - Lucia Valadez RN - 01/06/2022 2:48 PM CDT Images from the original note were not included. Routing refill request to provider for review/approval because: PHQ9 score of 6 on 07/29/2021 Patient is age 18 or older Lucia Valadez RN documented in this encounter Plan of Treatment Not on file documented as of this encounter Visit Diagnoses Diagnosis Anxiety Anxiety state, unspecified Current moderate episode of major depressive disorder without prior episode (H) documented in this encounter Additional Health Concerns Infection Onset Date Last Indicated Resolved Time Rule Out COVID-19 05/30/2022 05/30/2022 05/30/2022 10:19 PM CDT Influenza 05/30/2022 05/30/2022 06/06/2022 11:3 9 PM FIRE CAPTAIN MARINE Assessment Noted Time PHQ-9 Depression Total Score: 6 07/29/20 21 11:35 AM FIRE CAPTAIN MARINE documented as of this encounter Care Teams Mission Support Specialist Relationship Specialty Start Date End Date Laura Marks MD [address] [place] [phone] PCP - General Pediatrics 05/05/21 11/27/23 Iglesia Juárez MD [address] [place] [address] PCP - General Psychiatry 11/28/23 11/28/23 No Ref-Primary, Physician PCP - General 11/29/23 Laura Marks MD [address] [phone] Assigned PCP 08/01/21 12/19/24 Iglesia Juárez MD [address] [place] [address] department store general manager 11/17/23 11/28/23 Yosef Kaplan MD [address] [place] [address] Resident Psychiatry 11/29/23 Deyanira Ordoñez PA-C [address] [place] [address] Assigned PCP 12/20/24 documented as of this encounter
--- OUTSIDE RECORDS SUMMARY | 2024-12-26 10:51 | XMS_ITS | Clinical Summary ---
Author Organization [facility] Address [address] [place] [address] Care Team Providers Care Metal Template Maker Name Role Phone Clinician, Not Found MD Primary Care Provider Un available Source Comments You are receiving this document as you are listed as the primary care provider,follow-up provider, or the patient has been referred to you for consultation.This is in compliance with the Medicare and[facility] Hospital[facility] EHR Incentive Program,which states Providers who transition their patient to another setting of careor provider of care or refers their patient to another provider of care shouldprovide summary care record for each transition of care or referral. [facility] Allergies Active Allergy Reactions Criticality Noted Date Comments Pollen Extract Unknown Low 12/05/2016 Medications VENTOLIN HFA 108 (90 Base) MCG/ACT inhalerIndicatio ns:Asthma, exercise induced (HRC) INHALE 2 PUFFS EVERY 4 HOURS NEEDED FOR WHEEZING. 3 Inhaler 11/25/19 20 Active FLOVENT HFA 110 MCG/ACT inhaler 02/26/20 21 Active hydrOXYzine HCl (ATARAX) 10 MG tablet Take 1 Tablet (10 mg) by mouth. 05/09/20 24 Active citalopram (CELEXA) 40 MG tabletIndication s:Anxiety (HRC) Take 1 Tablet (40 mg) by mouth daily. 90 Tablet 3 07/20/20 24 Active buPROPion (WELLBUTRIN XL) 150 MG 24 hour release tabletIndication s:Anxiety (HRC) Take 1 Tablet (150 mg) by mouth daily. 90 Tablet 3 07/20/20 24 Active lidocaine 3% nifedipine 0.5% occluvanIndicati ons:Anal pain Apply topically three times a day. 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 180 Tablet 10/15/19 25 026 Active docusate sodium (COLACE) 100 MG capsuleIndicatio ns:Constipation, unspecified constipation type Take 1 Capsule (100 mg) by mouth daily. 30 Capsule 3 11/07/19 25 Active LOMAIRA 8 MGIndications:Ob esity, Class I, BMI 30-34.9 Take 1 Tablet (8 mg) by mouth every morning AND 1/2 Tablet (4 mg) every evening. 45 Tablet 12/18/19 25 Active phentermine (LOMAIRA) 8 MGIndications:Ob esity, Class I, BMI 30-34.9 Take 1 Tablet (8 mg) by mouth every morning AND 0.5 Tablets (4 mg) every evening. 45 Tablet 1 10/15/19 25 025 Discontinued Active Problems Problem Noted Date Diagnosed Date Anal fissure 12/19/2024 Obesity, Class I, BMI 30-34.9 07/20/2024 Major depression, recurrent 07/16/2023 Passive suicidal ideations 07/16/2023 Mild intermittent asthma, uncomplicated 02/26/20 Asthma, exercise induced 03/16/2018 Anxiety 12/20/2016 Generalized anxiety disorder 12/20/2016 Depression 07/31/2015 Overview (08/18/2024): started around middle school Resolved Problems Problem Noted Date Diagnosed Date Resolved Date Adjustment disorder with anxious mood 03/18/2016 03/16/2018 Encounters Date Type Department Care Team Description 12/19/2024 3:40 PM CDT [facility] 39[address] Colorectal Surgery [address] [facility] [address] [place], [place] [address] Juliano Yates MD Anal fissure (Primary Dx) 12/18/2024 jamie Mcginnis [address] [place] [address] 12/17/2024 [facility] [address] [facility] [place] [address] Darling Harding APRN, CNP Refill (LOMAIRA 8 MG [Pharmacy Med Name: Lomaira Oral Tablet 8 MG]) 12/06/2024 3:50 PM CDT Nursing Visit [facility]-SLURRY TANK OPERATOR [address] [facility] [address] [place] [address] Nurse, Amber Obbrandt Blood pressure check (Primary Dx) 11/06/2024 11:45 AM CDT Office Visit [facility] [address] Colorectal Surgery [address] [place] [address] Shahla Lorenz PA-C Anal fissure (Primary Dx); Rectal bleeding; Constipation, unspecified constipation type 10/23/2024 9:00 AM CDT Nursing Visit [facility]-SLURRY TANK OPERATOR [address] [facility], [address] [address] Nurse, Amber Obbrandt Blood pressure check (Primary Dx) 10/18/2024 12:20 PM CDT Office Visit [facility] [address] [place] [address] Selma Covington PA-C Eye redness 10/17/2024 Nurse Triage [facility] [address] [place] [address] Clinician, Not Found, EYE DISCHARGE (/) 10/17/2024 Telephone Careline [address] [facility]. [place], [place] [phone] Unknown, Physician SWELLING, EYELIDS 10/14/2024 5:[address] [facility] [address] [place] [address] Darling Harding APRN, CNP Obesity, Class I, BMI 30-34.9 (HRC) (Primary Dx) 10/14/2024 10:30 AM CDT E-Visit [facility] [place] [address] Darling Harding APRN, CNP Chief Comp: QUESTIONS, GENERAL 10/14/2024 Refill [facility] [address] [place] [address] Darling Harding APRN, CNP Refill (topiramate (TOPAMAX) 25 MG tablet [Pharmacy Med Name: Topiramate Oral Tablet 25 MG]) 10/14/2024 Refill [facility] [address] [place] [address] Darling Harding APRN, CNP Refill (LOMAIRA 8 MG [Pharmacy Med Name: Lomaira Oral Tablet 8 MG]) from Last 3 Months Immunizations Immunization Administration Dates Next Due [id number]-CJJ (Pediarix) 05/18/2005,02/15/2005,0 2004 DTaP-IPV (Kinrix, 4-6 yrs) 03/02/2010 DTaP/Hib 02/08/2006 Flu Vac (3+ yrs) 06/17/2010, 8,07/27/2006,2004 Flu Vac Preserv Free (6-35 mo) 07/27/2006 HepA Ped/Adol (1-18 yrs) 02/25/2021 HepB Adult (Engerix-B, 20+ y rs, 3 dose series) 09/05/2024,06/14/2024 HepB Adult (Heplisav-B, 19+ yrs, 2 dose series) 09/05/2024,06/14/2024 Hib (ActHIB) 2004 Hib (PedvaxHIB) 02/15/2005 Influenza (Fluzone 0.25, 6-35 mos) 06/17/2005, Influenza IIV4 (Quadrivalent ) 0.5mL (91499) 08/02/2023,06/17/2010,06/18/2008 MCV4 (Menactra) 02/25/2021,04/25/2017 MMR 03/02/2010,10/26/2005 Novavax COVID-19 12+ 08/05/2023 Pneumococcal 7, PED 02/08/2006, 5,02/15/2005,2004 Tdap 04/25/2017 Varicella 03/02/2010,10/26/2005 Family History Medical History Relation Name Comments Migraines Mother Thyroid Disorder Mother Hypothyroid Vitiligo Mother Bipolar Disorder Brother Diabetes, Type I Brother Sjogrens Syndrome Maternal Grandfather Bipolar Disorder Maternal Uncle Migraines Maternal Uncle Bipolar Disorder Paternal Grandfather Anxiety Sister Diabetes, Type I Sister Relation Name Status Comments Mother Brother Maternal Grandfather Maternal Uncle Paternal Grandfather Sister Social History Tobacco Use Types Packs/Day Years Used Date Smoking Tobacco: Never Smokeless Tobacco: Never Tobacco Cessation:Counseling Given: No Alcohol Use Standard Drinks/Week Comments No 0 (1 standard drink = 0.6 oz pur e alcohol) PHQ-2 Answer Date Recorded PHQ-2 Score 2 07/20/2024 Comments No Sex and Gender Information Value Date Recorded Sex Assigned at Not on file Legal Sex Female 1:20 PM CDT Gender Identity Not on file Sexual Orientation Not on file Last Filed Vital Signs Vital Sign Reading Time Taken Comments Blood Pressure 107/63 12/06/2024 4:25 PM CDT Pulse 80 12/06/2024 4:25 PM CDT Temperature 37.1 C (98.7 F) 10/18/2024 12:30 PM CDT Respiratory Rate 16 10/18/2024 12:30 PM CDT Oxygen Saturation 100% 10/18/2024 12:30 PM CDT Inhaled Oxygen Concentration - - Weight 82.1 kg (181 lb) 12/20/2024 7:59 AM CDT Height 172.7 cm (5' 8) 12/20/2024 7:59 AM CDT Body Mass Index 27.52 12/20/2024 7:59 AM CDT Plan of Treatment Upcoming Encounters Date Type Department Care Team (Late st Contact Info) Description 01/13/2025 7:00 AM CDT Appointment Optometry at [address] [address] Adeola Burgos, OD [address] [facility] [address] [place] [address] Scheduled Procedures Name Priority Associated Diagnoses Date/Ti me INJECTION BOTOX SPHINCTER Anal fissure Health Maintenance Due Date Last Done Comments Hep C Screening (Preventive Services) 2004 MenB Immunization Discussion 2004 HPV Vaccine (1 - 3-dose series) 10/17/2019 HIV Screening (Preventive Services) 2020 HepA Vaccine (2 of 2 - 2-dos e series) 08/28/2021 02/25/2021 Adult Preventive Visit 2022 03/14/2018 Pneumococcal Vaccine (1 of 2 - PCV) 10/17/2023 02/08/2006, 05/18/2005, 02/15/2005, Additional history exists COVID-19 Vaccine (2 - Novava x series) 03/31/2024 08/05/2023 Influenza Vaccine (Season Ended) 2025 08/02/2023, 06/17/2010, 06/17/2010, Additional history exists Chlamydia 05/20/2025 05/20/2024, 05/01, 03/08/2023, Additional history exists Asthma ACT (score of 20 or higher) 07/20/2025 07/20/2024, 07/18/2024, 11/19/2018, Additional history exists DTaP/Tdap/Td Vaccine (7 - Tdap) 04/25/2027 04/25/2017, 03/02/2010, 02/08/2006, Additional history exists Zoster/Shingles Vaccine (1 of 2) 2054 Hib Vaccine Completed 02/08/2006, 01/28, 2004 IPV (Polio) Vaccine Completed 03/02/2010, 05/18/2005, 02/15/2005, Additional history exists Varicella Vaccine Completed 03/02/2010, 10/26/2005 MCV4 Vaccine Completed 02/25/2021, 04/25/2017 HepB Vaccine Completed 09/05/2024, 0212/2024, 06/14/2024, Additional history exists Procedures Procedure Name Priority Date/Time Associated Diagnosis Comments CHLAMYDIA & GC (14 YEARS & OLDER) Routine 03/08/2023 3:09 PM CDT Vaginal itching from Last 3 Months or Most Recently Relevant to Health Maintenance Results * Chlamydia & GC (14 Years and Older): Vagina (03/08/2023 3:09 PM CDT) Chlamydia Trachomatis STD Not Detected Not Detected 03/09/2023 12:25 PM CDT [facility] N. gonorrhoeae STD Not Detected Not Detected 03/09/2023 12:25 PM CDT [facility] Swab STD SPECIMEN FROM VAGINA / Unknown Non-blood Collection / Unknown 03/08/2023 3:09 PM CDT 03/08/2023 3:15 PM CDT Narrative [facility] - 03/09/2023 12:25 PM CDT Test performed by Gifts Officer Mediated Amplification (TMA). us Ninoska Hodges MD LAB_1 Final Result Performing Organization Address City/State/[facility] Co de Phone Number [facility] [address] [phone] from Last 3 Months or Most Recently Relevant to Health Maintenance Insurance [id number] [place], [place] [id number] Care Teams Metal Template Maker Relationship Specialty Start Date End Date Clinician, Not Found, [place] [address] PCP - General 11/26/19
--- OUTSIDE RECORDS SUMMARY | 2024-12-26 10:51 | XMS_ITS | Encounter Summary ---
Author Organization [facility] Address [facility] [place] [address] Care Team Providers Care Pugger Helper Name Role Phone Laura Marks MD Unavailable [phone] Yosef Kaplan MD Unavailable [phone] No Ref-Primary, Physician Primary Care Provider Deyanira Ordoñez PA-C Unavailable [phone] Encounter Details Date Type Department Care Team (Late st Contact Info) Description 12/15/2023 [facility] [address] [address] Yosef Kaplan MD [address] [place] [address] Major depressive disorder, recurrent episode, moderate (H); LUC (generalized anxiety disorder) Social History Tobacco Use Types Packs/Day Years [...] in an abandoned building, in an overnight correction, or couch-surfing.) Yes 06/19/2023 Are you worried [...] PM CDT Legal Sex Female 4:37 AM 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 Gender Identity Female 11/15/2023 1:58 PM CDT Sexual Orientation Straight 11/15/2023 1: 58 PM CDT documented as of this encounter Plan of Treatment Not on file documented as of this encounter Visit Diagnoses Diagnosis Major depressive disorder, recurrent episode, moderate (H) Major depressive disorder, recurrent episode, moderate LUC (generalized anxiety disorder) Generalized anxiety disorder documented in this encounter Additional Health Concerns Assessment Noted Time PHQ-9 Depression Total Score: 8 11/30/19 9:51 AM CDT documented as of this encounter Care Teams Pugger Helper Relationship Specialty Start Date End Date No Ref-Primary, Physician PCP - General 11/29/23 Laura Marks MD [address] [place] [phone] Assigned PCP 08/01/21 12/19/24 Yosef Kaplan MD [address] [place] [address] Resident Psychiatry 11/29/23 Deyanira Ordoñez PA-C [address] [place] [address] Assigned PCP 12/20/24 documented as of this encounter
--- OUTSIDE RECORDS SUMMARY | 2024-12-26 10:51 | XMS_ITS | Encounter Summary ---
Author Organization [facility] Address [address] [place] [address] Care Team Providers Care Telemarketing Agent Name Role Phone Esha Sandoval MD Primary Care Provid er Gabbie De La O MD Unavailable Jose Kulkarni MD Primary Care Provider [phone] Larua Marks MD Unavailable [phone] Laura Marks MD Primary Care Provider [phone] Gabbie De La O MD Unavailable Laura Marks MD Unavailable [phone] Iglesia Juárez MD Unavailable [phone] Iglesia Juárez MD Primary Care Provider + Yosef Kaplan MD Unavailable [phone] No Ref-Primary, Physician Primary Care Provider Deyanira Ordoñez PA-C Unavailable [phone] Encounter Details Date Type Department Care Team (Latest Contact Info) Description 08/31/2020 Historic Results Social History Tobacco Use Types Packs/Day Years Used Date Smoking Tobacco: Never PHQ-2 Answer Date Recorded PHQ-2 Score 4 08/31/2020 Comments No Sex and Gender Information Value Date Recorded Sex Assigned at Female 11/15/2023 1:58 PM CDT Legal Sex Female 4:37 AM R PROGRAMMER Gender Identity Female 11/15/2023 1:58 PM CDT Sexual Orientation Straight 11/15/2023 1: 58 PM CDT documented as of this encounter Plan of Treatment Not on file documented as of this encounter Visit Diagnoses Not on filedocumented in this encounter Additional Health Concerns Infection Onset Date Last Indicated Resolved Time Rule Out COVID-19 05/30/2022 05/30/2022 05/30/2022 10:19 PM CDT Influenza 05/30/2022 05/30/2022 06/06/2022 11:3 9 PM R PROGRAMMER Assessment Noted Time PHQ-9 Depression Total Score: 12 021 10:25 AM R PROGRAMMER documented as of this encounter Care Teams Telemarketing Agent Relationship Specialty Start Date End Date Esha Sandoval MD PCP - General 01/24/05 10/29/20 Jose Kulkarni MD [address] [facility] [address] [place] [phone] PCP - General Family Practice 02/05/21 05/04/21 Laura Marks MD [address] [place] [phone] PCP - General Pediatrics 05/05/21 11/27/23 Iglesia Juárez MD [address] [place] [phone] PCP - General Psychiatry 11/28/23 11/28/23 No Ref-Primary, Physician PCP - General 11/29/23 Gabbie De La O MD [address] [place] [address] [phone] Assigned PCP 09/06/20 03/06/21 Laura Marks MD [address] [place] [phone] Assigned PCP 03/07/21 05/08/21 Gabbie De La O MD [address] [place] [address] Assigned PCP 05/09/21 07/31/21 Laura Marks MD [address] [place] [phone] Assigned PCP 08/01/21 12/19/24 Iglesia Juárez MD [address] [place] [address] upholstery instructor 11/17/23 11/28/23 Yosef Kaplan MD [address] [place] [address] Resident Psychiatry 11/29/23 Deyanira Ordoñez PA-C [address] [place] [address] Assigned PCP 12/20/24 documented as of this encounter
--- OUTSIDE RECORDS SUMMARY | 2024-12-26 10:51 | XMS_ITS | Encounter Summary ---
Author Organization [facility] Address [facility] [place] [address] Care Team Providers Care Blue Prints Trimmer Name Role Phone Laura Marks MD Unavailable [phone] Yosef Kaplan MD Unavailable [phone] No Ref-Primary, Physician Primary Care Provider Deyanira Ordoñez PA-C Unavailable [phone] Encounter Details Date Type Department Care Team (Late st Contact Info) Description 04/22/2024 [facility] [place] [id number] [address] [place] [address] Santi Guy Social History Tobacco Use Types Packs/Day Years Used Date Smoking Tobacco: Former Cigarettes Smokeless Tobacco: Never Alcohol Use Standard Drinks/Week Comments Yes 0 (1 standard drink = 0.6 oz pur e alcohol) PHQ-2 Answer Date Recorded PHQ-2 Score 2 01/19/2024 Adolescent Education Answer Date Record ed Getting [...] in an abandoned building, in an overnight usp, or couch-surfing.) Yes 06/19/2023 Are you worried [...] PM CDT 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 Sex 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 Gender Identity Female 11/15/2023 1:58 PM CDT Sexual Orientation Straight 11/15/2023 1: 58 PM CDT documented as of this encounter Plan of Treatment Not on file documented as of this encounter Visit Diagnoses Not on filedocumented in this encounter Additional Health Concerns Assessment Noted Time PHQ-9 Depression Total Score: 8 01/19/20 24 2:20 PM CDT documented as of this encounter Care Teams Blue Prints Trimmer Relationship Specialty Start Date End Date No Ref-Primary, Physician PCP - General 11/29/23 Laura Marks MD [address] [place] [phone] Assigned PCP 08/01/21 12/19/24 Yosef Kaplan MD [address] [place] [address] [phone] Resident Psychiatry 11/29/23 Deyanira Ordoñez PA-C [address] [place] [address] Assigned PCP 12/20/24 documented as of this encounter
--- OUTSIDE RECORDS SUMMARY | 2024-12-26 10:51 | XMS_ITS | Encounter Summary ---
Author Organization [facility] Address [address] [place] [address] Care Team Providers Care Glass Cylinder Flanger Name Role Phone Esha Sandoval MD Primary Care Provid er Esha Sandoval MD Unavailable [phone] Esha Sandoval MD Unavailable [phone] Gabbie De La O MD Unavailable [place] MD Primary Care Provider Laura Marks MD Unavailable [phone] Laura Marks MD Primary Care Provider [phone] Gabbie De La O MD Unavailable Laura Marks MD Unavailable [phone] Iglesia Juárez MD Unavailable [phone] Iglesia Juárez MD Primary Care Provider + Yosef Kaplan MD Unavailable [phone] No Ref-Primary, Physician Primary Care Provider Deyanira Ordoñez PA-C Unavailable [phone] Encounter Details Date Type Department Care Team (Late st Contact Info) Description [address] [place] [address] Courtney Lyons MD [address] [place] [address] [facility] (Primary Dx) Social History Tobacco Use Types Packs/Day Years Used Date Smoking Tobacco: Former Cigarettes Smokeless Tobacco: Never Alcohol Use Standard Drinks/Week Comments Yes 0 (1 standard drink = 0.6 oz pur e alcohol) Comments No Sex and Gender Information Value Date Recorded Sex Assigned at Female 11/15/2023 1:58 PM CDT Legal Sex Female 4:37 AM 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 ANALYST Gender Identity Female 11/15/2023 1:58 PM CDT Sexual Orientation Straight 11/15/2023 1: 58 PM CDT documented as of this encounter Plan of Treatment Not on file documented as of this encounter Visit Diagnoses Diagnosis [facility]- Primary documented in this encounter Additional Health Concerns Infection Onset Date Last Indicated Resolved Time Rule Out COVID-19 05/30/2022 05/30/2022 05/30/2022 10:19 PM CDT Influenza 05/30/2022 05/30/2022 06/06/2022 11:3 9 PM EDUCATION RESEARCH ANALYST documented as of this encounter Care Teams Glass Cylinder Flanger Relationship Specialty Start Date End Date Esha Sandoval MD PCP - General 01/24/05 10/29/20 Esha Sandoval MD [address] [facility] [address] [place] [address] PCP - Assigned PCP 03/20/16 10/02/18 [place] mar[place] MD [address] [facility] [address] [place] [phone] PCP - General Family Practice 02/05/21 05/04/21 Laura Marks MD [address] [place] [phone] PCP - General Pediatrics 05/05/21 11/27/23 Iglesia Juárez MD [address] [place] [address] PCP - General Psychiatry 11/28/23 11/28/23 No Ref-Primary, Physician PCP - General 11/29/23 Esha Sandoval MD [address] [place] [address] Assigned PCP 03/20/16 04/25/20 Gabbie De La O MD [address] [place] [address] Assigned PCP 09/06/20 03/06/21 Laura Marks MD [address] [place] [phone] Assigned PCP 03/07/21 05/08/21 Gabbie De La O MD [address] [place] [address] Assigned PCP 05/09/21 07/31/21 Laura Marks MD [address] [place] [phone] Assigned PCP 08/01/21 12/19/24 Iglesia Juárez MD [address] [place] [address] naturopathic oncology provider 11/17/23 11/28/23 Yosef Kaplan MD [address] [place] [address] Resident Psychiatry 11/29/23 Deyanira Ordoñez PA-C [address] [place] [address] Assigned PCP 12/20/24 documented as of this encounter
--- OUTSIDE RECORDS SUMMARY | 2024-12-26 10:51 | XMS_ITS | Encounter Summary ---
Author Organization [facility] Address [address] [place] [id number] Care Team Providers Care Raw Material Planner Name Role Phone Laura Marks MD Unavailable [phone] Yosef Kaplan MD Unavailable [phone] No Ref-Primary, Physician Primary Care Provider Deyanira Ordoñez PA-C Unavailable [phone] Reason for Visit * Reason Onset Date Comments Refill Request 03/07/2024 Encounter Details Date Type Department Care Team (Late st Contact Info) Description 03/07/2024 MyC Refill [address] [id number] Gabbie De La O MD [address] [place] [id number] Refill Request Social History Tobacco Use Types Packs/Day Years [...] in an abandoned building, in an overnight fci, or couch-surfing.) Yes 06/19/2023 Are you worried [...] PM CDT Legal Sex Female 4:37 AM [employer] Gender Identity Female 11/15/2023 1:58 PM CDT Sexual Orientation Straight 11/15/2023 1 :58 PM CDT documented as of this encounter Plan of Treatment Not on file documented as of this encounter Visit Diagnoses Diagnosis Anxiety Anxiety state, unspecified documented in this encounter Additional Health Concerns Assessment Noted Time PHQ-9 Depression Total Score: 8 01/19/20 2:20 PM CDT documented as of this encounter Care Teams Raw Material Planner Relationship Specialty Start Date End Date No Ref-Primary, Physician PCP - General 11/29/23 Laura Marks MD [address] [place] [id number] Assigned PCP 08/01/21 12/19/24 Yosef Kaplan MD [address], [place] [id number] Resident Psychiatry 11/29/23 Deyanira Ordoñez PA-C [address], [place] [id number] Assigned PCP 12/20/24 documented as of this encounter
[2024-12-26] MEDS: ONDANSETRON ODT 4 MG TAB PO (11:05)
[2024-12-26] MEDS: KETOROLAC 10 MG TABLET PO (11:05)
[2024-12-26 12:00] VITALS: BP 124/74; PULSE 72; RESP 16; O2SAT 100
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
[2024-12-26] MEDS: METOCLOPRAMIDE HCL 5 MG/ML INJ 10 MG IVP (12:59)
[2024-12-26] MEDS: diphenhydrAMINE 50 MG/ML inj 25 MG IVP (13:00)
[2024-12-26] MEDS: LACTATED RINGERS 1000 ML 1,000 ML IV (13:00)
[2024-12-26 13:20] VITALS: PULSE 130; RESP 38; O2SAT 100
[2024-12-26 13:30] VITALS: PULSE 100; RESP 24; O2SAT 100
[2024-12-26 13:40] VITALS: PULSE 76; RESP 16; O2SAT 100
== END 2024-12-26 13:47 | disposition home or self-care (01) ==
PROVIDERS: Emergency Provider Student in an Organized Health Care Education/Training Program; PCP Nurse Practitioner
DX: S06.0X0A Concussion without loss of consciousness, initial encounter (principal); V43.52XA Car driver injured in collision with other type car in traffic accident, initial encounter
CPT/HCPCS: 96374; 96375; 99283; A9270; J1200; J2765; J7120